=== PATIENT | female | born 1960 | race Caucasian/White ===

== ENCOUNTER 2021-07-25 11:27 | Emergency (ER) | payer OTHER ==
[~2021-07-25] VITALS: Ht 167.6 cm; Wt 83.0 kg
== END 2021-07-25 15:00 | disposition home or self-care (01) ==
LOC: ER1 11:27
DX: Z23 Encounter for immunization (principal); U07.1 COVID-19; E78.5 Hyperlipidemia, unspecified; I10 Essential (primary) hypertension
CPT/HCPCS: 93005; 99283; M0243